=== PATIENT | male | born 1950 | race Caucasian/White ===

== ENCOUNTER 2017-09-02 19:40 | Inpatient (IN) ==
[2017-09-02] MEDS ORDERED: Piperacil/Tazo 4.5 GM Premix 4.5 GM/100 ML BAG IV.SIG STA (20:10)
[2017-09-02] MEDS ORDERED: Acetaminophen 325 MG Tablet PO ONE (20:10)
[2017-09-02] MEDS ORDERED: Sod Chloride 0.9% Inj 300 ML IV.SIG SCH (20:15)
[2017-09-02] MEDS ORDERED: Sod Chloride 0.9% Inj 1,000 ML IV.SIG SCH (20:15)
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
[2017-09-02] MEDS: Sod Chloride 0.9% Inj 1,000 ML IV.SIG SCH (20:54)
[2017-09-02 21:03] LABS: Baso % (Auto) 0.3 % (0.0-2.0); Eos # (Auto) 0.1 th/mm3 (0.0-0.4); Eos % (Auto) 1.7 % (0.0-4.0); Hematocrit 39.9 % (39.0-51.0); Hemoglobin 13.3 gm/dL (13.0-17.0); Lymph # (Auto) 1.2 th/mm3 (1.0-4.8); Mean Corpuscular HGB Conc 33.3 % (32.0-36.0); Mean Corpuscular Volume 92.9 fL (80.0-100.0); Mono # (Auto) 0.7 th/mm3 (0.0-0.9); Mono % (Auto) 8.8 % (0.0-8.0); Neut # (Auto) 5.5 th/mm3 (1.8-7.7); Neut % (Auto) 73.2 % (16.0-70.0); Platelet Count 159 th/mm3 (150-450); Red Cell Distribution Width 13.4 % (11.6-17.2); White Blood Count 7.5 th/mm3 (4.0-11.0)
--- NOTE | 2017-09-02 21:04 | XR ---
EXAM DATE: 09/02/2017 8:54 PM EDT AGE/SEX: 67 years / Male INDICATIONS: Chest pains, shortness of breath, back pains. CLINICAL DATA: This is the patient's initial encounter. Patient reports that signs and symptoms have been present for 1 day and indicates a pain score of 9/10. MEDICAL/SURGICAL HISTORY: Chronic obstructive pulmonary disease. Black lung disease None. COMPARISON: No prior exams available for comparison. FINDINGS: A single AP view of the chest demonstrates the lungs to be symmetrically aerated without evidence of mass, infiltrate or effusion. Mild basilar atelectasis. The cardiomediastinal contours are unremarka ble. Osseous structures are intact. CONCLUSION: Mild basilar atelectasis. Electronically signed by: Brooks Ferreira MD 09/02/2017 9:03 PM EDT
[2017-09-02 21:08] LABS: Activated Partial Thrombo Time 24.9 sec (24.3-30.1); Prothrombin Time 10.4 sec (9.8-11.6)
[2017-09-02 21:27] LABS: Albumin 3.6 g/dL (3.4-5.0); Anion Gap 11 meq/L (5-15); Aspartate Aminotransferase 28 U/L (15-37); Blood Urea Nitrogen 12 mg/dL (7-18); Calcium 8.7 mg/dL (8.5-10.1); Carbon Dioxide 23.4 meq/L (21.0-32.0); Chloride 104 meq/L (98-107); Glomerular Filtration Rate 50 mL/min (>89); Glucose,Random 116 mg/dL (74-106); Lipase 94 U/L (73-393); Magnesium 1.9 mg/dL (1.5-2.5); Sodium 138 meq/L (136-145)
[2017-09-02 21:28] LABS: Alanine Aminotransferase 28 U/L (12-78)
[2017-09-02 21:31] LABS: Alkaline Phosphatase 96 U/L (45-117); Total Protein 7.7 g/dL (6.4-8.2)
[2017-09-02 21:56] LABS: Creatine Kinase 67 U/L (39-308)
[2017-09-02 22:48] LABS: Bacteria,Urine Rare /hpf; Bilirubin,Urine Negative (Negative); Clarity,Urine Hazy (Clear); Color,Urine Yellow (Yellw/Straw); Glucose,Urine (UA) Negative (Negative); Leukocyte Esterase,Urine Small (Negative); Mucus,Urine Few /lpf (Occasional); Nitrite,Urine Negative (Negative); Specific Gravity,Urine 1.025 (1.002-1.035)
[2017-09-03] MEDS ORDERED: Bisacodyl 10 MG Supp RECTAL PRN (01:25)
[2017-09-03] MEDS ORDERED: Acetaminophen 325 MG Tablet PO PRN (01:25)
[2017-09-03] MEDS ORDERED: Temazepam 15 MG Capsule PO PRN (01:25)
[2017-09-03] MEDS ORDERED: Sod Chloride 0.9% Inj 1,000 ML IV.CONT SCH (01:30)
--- NOTE | 2017-09-03 01:35 | P.HPFP ---
History of Present Illness Primary Care Physician: UNKNOWN <Rex Gallardo 09/03/17 14:20> UNKNOWN <Adeola Connelly 09/03/17 01:35> Chief Complaint: Fever, chills, and weakness <Adeola Connelly 09/03/17 01:35 > History of Present Illness: 67 year old male PMH of asthma, herniated discs, HTN, pulmonary emboli, sleep apnea, and stroke presented with fever and weakness. Patient on vacation from [place] with and after being on the beach all day came back to [facility] feeling overheated and weak. Vomited multiple times nonbloody. Has felt ill with fevers and chills for a couple of days. Oral temperature today was 102. Has been having difficulty initiating and finishing as well as pain with urination for past two months. Was unable to urinate on Thursday. 2 months ago admitted to hospital for urinary tract infection and received antibiotics. Had no imaging done at that time but said 15 years ago imaging showed something abnormal for prostate that he was supposed to follow up on yearly and never did. Father had bladder cancer and brother had prostate cancer. He notes no discharge. Notes back pain that has been constant for years and followed by a spine physician. <Adeola Connelly 09/03/17 01:35> - Diagnosis (1) Sepsis (2) UTI (urinary tract infection) (3) Weakness (4) Back pain (5) Constipation (6) Elevated serum creatinine <Rex Gallardo 09/03/17 14:20> (1) Sepsis (2) UTI (urinary tract infection) (3) Weakness (4) Back pain (5) Constipation (6) Elevated serum creatinine <Adeola Connelly 09/03/17 02:33> - Inpatient Certification If this patient has been admitted as an Inpatient: I certify that the inpatient services were ordered in accordance with Medicare regulations governing the order. This includes certification that hospital inpatient services are reasonable and necessary and in the case of services not specified as inpatient-only under 42 CFR 419.22(n), that they are appropriately provided as inpatient services in accordance to with the 2-midnight benchmark under 43 CFR 412.3(e) <Rex Gallardo 09/03/17 14:20> I certify that the inpatient services were ordered in accordance with Medicare regulations governing the order. This includes certification that hospital inpatient services are reasonable and necessary and in the case of services not specified as inpatient-only under 42 CFR 419.22(n), that they are appropriately provided as inpatient services in accordance to with the 2-midnight benchmark under 43 CFR 412.3(e) <Adeola Connelly 09/03/17 01:35> Review of Systems Constitutional: Reports body ache(s), Reports chills, Reports fatigue, Reports fever(s), Reports night sweats, Reports weakness <Adeola Connelly 09/03/17 01:35> Ears, Nose, Mouth, and Throat: Denies nasal congestion, Denies sore throat < Adeola Connelly 09/03/17 01:35> Cardiovascular: Reports shortness of breath, Reports shortness of breath with activity, Denies chest pain <Adeola Connelly 09/03/17 01:35> Respiratory: Reports shortness of breath, Reports shortness of breath with activity <Adeola Connelly 09/03/17 01:35> Gastrointestinal: Reports constipation, Reports vomiting, Denies abdominal pain , Denies change in stools <Adeola Connelly 09/03/17 01:35> Genitourinary: Reports painful urination, Reports urinary frequency, Reports urinary hesitancy <Adeola Connelly 09/03/17 01:35> Musculoskeletal: Reports back pain, Reports muscle weakness, Reports stiffness <Adeola Connelly 09/03/17 01:35> Neurologic: Reports radiating pain, Reports weakness, Denies frequent falls, Denies loss of vision, Denies memory loss, Denies numbness <Adeola Connelly 09/03/17 01:35> PMF - History History Provided By: Patient, Family Member <Adeola Connelly 09/03/17 01:35> - Medical History Medical History: Medical History (Last Updated 09/03/17 @ 01:29 by Adeola Connelly) Asthma Back pain HTN (hypertension) Mass in chest Pulmonary emboli Sleep apnea Stroke <Rex Gallardo - 09/03/17 14:20> Medical History (Last Updated 09/03/17 @ 01:29 by Adeola Connelly) Asthma Back pain HTN (hypertension) Mass in chest Pulmonary emboli Sleep apnea Stroke <Adeola Connelly 09/03/17 01:35> - Family History Family History: Family History (Last Updated 09/03/17 @ 01:29 by Adeola Connelly) Brother Family history of cancer Father Family history of cancer <Rex Gallardo 09/03/17 14:20> Family History (Last Updated 09/03/17 @ 01:29 by Adeola Connelly) Brother Family history of cancer Father Family history of cancer <Adeola Connelly 09/03/17 01:35> - Tobacco History Second Hand Smoke Exposure: No <Adeola Connelly 09/03/17 01:35> Smoking Status: Never smoker <Adeola Connelly 09/03/17 01:35> - Alcohol History How Often Do You Have a Drink Containing Alcohol: Monthly or less <Adeola Connelly 09/03/17 01:35> - Travel History Recent Travel in the [facility] Within the Last 8 Weeks: No <Adeola Connelly 01:35> Recent Travel Out of the Country Within the Last 8 Weeks: No <Adeola Connelly 09/03/17 01:35> - Immunization History Tetanus Immunization: >5 Years <Adeola Connelly 09/03/17 01:35> Hx Influenza Vaccine This Season: No <Adeola Connelly 09/03/17 01:35> Medications and Allergies Allergies Allergy/AdvReac Type Severity Reaction Status Date / Time morphine Allergy Burning Verified 09/02/17 19:53 <Rex Gallardo 09/03/17 14:20> Home Medications Medication Instructions Recorded Confirmed Type apixaban [Eliquis] 5 mg PO BID 09/02/17 09/02/17 History gabapentin [Neurontin] 300 mg PO TID 09/02/17 09/02/17 History hydrocodone-acetaminophen 1 tab PO Q6H PRN 09/02/17 09/02/17 History mirtazapine 30 mg PO DAILY 09/02/17 09/02/17 History <Rex Gallardo 09/03/17 14:20> Active Medications: Active Medications Acetaminophen (Tylenol) 650 mg PO Q4H PRN PRN Reason: Temp > 100.4 Hydrocodone Bitart/Acetaminophen (Van 10/325) 1 tab PO Q6H PRN PRN Reason: SEVERE PAIN Last Admin: 09/03/17 12:34 Dose: 1 tab Al Hydroxide/Mg Hydroxide (Milk Of Magnesia Liq) 30 ml PO Q12H PRN PRN Reason: Mild Constipation Bisacodyl (Dulcolax Supp) 10 mg RECTAL DAILY PRN PRN Reason: SEVERE CONSITIPATION Heparin Sodium (Porcine) (Heparin Inj) 5,000 units SQ Q8H [facility] Last Admin: 09/03/17 09:48 Dose: 5,000 units Sodium Chloride (Ns Inj) 1,000 mls @ 0 mls/hr IV.SIG .Q0M MATI Last Admin: 09/03/17 06:17 Dose: 140 mls/hr Sodium Chloride (Ns Inj) 1,000 mls @ 0 mls/hr IV.SIG .Q0M [facility] Last Infusion: 09/03/17 00:10 Dose: Infused Sodium Chloride (Ns Inj) 300 mls @ 0 mls/hr IV.SIG .Q0M MATI Last Infusion: 09/03/17 00:10 Dose: Infused Sodium Chloride (Ns Inj) 1,000 mls @ 140 mls/hr IV.CONT .Q7H9M MATI Ceftriaxone Sodium 1,000 mg/ (Sodium Chloride) 100 mls @ 200 mls/hr IV.SIG Q24H [facility] Last Admin: 09/03/17 06:18 Dose: 200 mls/hr Lactulose (Lactulose Liq) 30 ml PO DAILY PRN PRN Reason: SEVERE CONSITIPATION Ondansetron HCl (Zofran Odt) 4 mg PO Q6H PRN PRN Reason: NAUSEA OR VOMITING Senna/Docusate Sodium (Elba-Colace) 1 tab PO BID [facility] Last Admin: 09/03/17 09:51 Dose: Not Given Sennosides (Senokot) 17.2 mg PO Q12H PRN PRN Reason: Moderate Constipation Temazepam (Restoril) 15 mg PO HS PRN PRN Reason: INSOMNIA <Oslos,Rex R - 09/03/17 14:20> Active Medications Sodium Chloride (Ns Inj) 1,000 mls @ 0 mls/hr IV.SIG .Q0M [facility] Last Infusion: 09/03/17 00:10 Dose: Infused Sodium Chloride (Ns Inj) 1,000 mls @ 0 mls/hr IV.SIG .Q0M MATI Last Infusion: 09/03/17 00:10 Dose: Infused Sodium Chloride (Ns Inj) 300 mls @ 0 mls/hr IV.SIG .Q0M MATI Last Infusion: 09/03/17 00:10 Dose: Infused <GodwinAdeola C - 09/03/17 01:35> Exam Vital signs: Vital Signs 09/02/17 19:48 09/02/17 20:10 09/02/17 22:45 Temperature 102.8 F H Pulse Rate 122 H 100 H Respiratory Rate 24 16 Blood Pressure 127/71 114/59 L Pulse Oximetry 92 L 96 100 09/03/17 01:25 09/03/17 02:00 09/03/17 03:38 Temperature Pulse Rate 98 H 76 Respiratory Rate 16 Blood Pressure 117/60 Pulse Oximetry 98 98 98 09/03/17 04:44 09/03/17 06:23 09/03/17 06:27 Temperature 97.7 F 97.8 F Pulse Rate 78 73 Respiratory Rate 20 20 16 Blood Pressure 120/80 115/68 Pulse Oximetry 96 09/03/17 08:00 09/03/17 12:00 Temperature 98.2 F 97.9 F Pulse Rate 78 80 Respiratory Rate 18 18 Blood Pressure 102/61 124/73 Pulse Oximetry 94 L 96 Intake & Output 09/02/17 09/03/17 09/03/17 18:59 06:59 18:59 Intake Total 2300 / 2300 Output Total 250 / 250 Balance 2049 Weight 110.3 kg Intake: IV 2300 / 2300 NS Inj 300 ML @ Wide Open IV. 2300 / 2300 SIG .Q0M MATI Rx#:[id number] Oral 0 / 0 Output: Urine 250 / 250 Other: # Bowel Movements 0 Weight On Admission 106.5 kg <Rex Gallardo R - 09/03/17 14:20> Vital Signs 09/02/17 19:48 09/02/17 20:10 09/02/17 22:45 Temperature 102.8 F H Pulse Rate 122 H 100 H Respiratory Rate 24 16 Blood Pressure 127/71 114/59 L Pulse Oximetry 92 L 96 100 Intake & Output 09/02/17 09/02/17 09/03/17 06:59 18:59 06:59 Intake Total 2300 / 2300 Balance 2300 / 2300 Weight 106.594 kg Intake: IV 2300 / 2300 NS Inj 300 ML @ Wide Open IV. 2300 / 2300 SIG .Q0M MATI Rx#:[id number] <GodwinAdeola 09/03/17 01:35> - Constitutional no acute distress <Adeola Connelly 09/03/17 01:35> - Routine HEENT Exam Head: Present: normocephalic, atraumatic <Adeola Connelly 09/03/17 01:35> Eye: Present: EOMI, PERRL <Adeola Connelly 09/03/17 01:35> ENT: Present: mucous membranes moist <Adeola Connelly 09/03/17 01:35> - Routine Neck Exam Present: full ROM <Adeola Connelly 09/03/17 01:35> - Routine Respiratory Exam Absent: wheezes, crackles <Adeola Connelly 09/03/17 01:35> - Detailed Respiratory Exam bilateral Present: clear to auscultation. Absent: rhonchi, wheezes <Adeola Connelly 09/03/17 01:35> - Routine Cardiovascular Exam Present: RRR. Absent: murmur <Adeola Connelly 09/03/17 01:35> - Routine Abdominal Exam Present: soft, normoactive bowel sounds. Absent: tenderness, distended, guarding, rigid <Adeola Connelly 09/03/17 01:35> - Routine Extremities Exam Absent: edema <Adeola Connelly 09/03/17 01:35> - Routine Skin Exam Comments: sunburn on stomach <Adeola Cnonelly 09/03/17 01:35> - Routine Neurological Exam Present: alert, oriented X3, CN II-XII intact. Absent: sensory deficit < Adeola Connelly 09/03/17 01:35> strength 5/5 bilaterally for plantar flexion, dorsiflexion, and hip flexion <Adeola Connelly 09/03/17 01:35> Results - Labs Result diagrams: 09/02/17 20:20 09/03/17 09:42 <Rex Gallardo 09/03/17 14:20> Abnormal lab results 09/02/17 09/02/17 09/02/17 Range/Units 20:20 20:20 22:00 RBC 4.30 L (4.50-5.90) mil/mm3 Neut % (Auto) 73.2 H (16.0-70.0) % Marin % (Auto) 8.8 H (0.0-8.0) % ESR (0-20) mm/hr Chloride (98-107) meq/L Creatinine 1.43 H (0.60-1.30) mg/dL Estimated GFR 50 L (>89) mL/min Random Glucose 116 H (74-106) mg/dL Calcium (8.5-10.1) mg/dL Troponin I Less than 0.02 L (0.02-0.05) ng/mL Urine Clarity Hazy H (Clear) Ur Leukocyte Esterase Small H (Negative) Urine WBC 18 H (0-5) /hpf Urine Bacteria Rare H (None) /hpf Urine Mucus Few H (Occasional) /lpf 09/03/17 09/03/17 Range/Units 09:42 09:42 RBC (4.50-5.90) mil/mm3 Neut % (Auto) (16.0-70.0) % Marin % (Auto) (0.0-8.0) % ESR 32 H (0-20) mm/hr Chloride 110 H (98-107) meq/L Creatinine (0.60-1.30) mg/dL Estimated GFR 69 L (>89) mL/min Random Glucose (74-106) mg/dL Calcium 8.0 L (8.5-10.1) mg/dL Troponin I (0.02-0.05) ng/mL Urine Clarity (Clear) Ur Leukocyte Esterase (Negative) Urine WBC (0-5) /hpf Urine Bacteria (None) /hpf Urine Mucus (Occasional) /lpf Short CBC 09/02/17 Range/Units 20:20 WBC 7.5 (4.0-11.0) th/mm3 Hgb 13.3 (13.0-17.0) gm/dL Hct 39.9 (39.0-51.0) % Plt Count 159 (150-450) th/mm3 BMP 09/02/17 09/03/17 20:20 09:42 Sodium 138 143 Potassium 4.0 3.7 Chloride 104 110 H Carbon Dioxide 23.4 22.2 BUN 12 9 Creatinine 1.43 H 1.08 Calcium 8.7 8.0 L Cardiac Enzymes 09/02/17 Range/Units 20:20 Total Creatine Kinase 67 (39-308) U/L Troponin I Less than 0.02 L (0.02-0.05) ng/mL Liver Function 09/02/17 Range/Units 20:20 Total Bilirubin 0.4 (0.2-1.0) mg/dL AST 28 (15-37) U/L ALT 28 (12-78) U/L Alkaline Phosphatase 96 (45-117) U/L Albumin 3.6 (3.4-5.0) g/dL Urine 09/02/17 Range/Units 22:00 Urine Color Yellow (Yellw/Straw) Urine Clarity Hazy H (Clear) Urine pH 5.0 (5.0-8.5) Ur Specific Florence 1.025 (1.002-1.035) Urine Protein Negative (Neg-Trace) mg/dL Urine Glucose (UA) Negative (Negative) mg/dL <Rex Gallardo R - 09/03/17 14:20> Abnormal lab results 09/02/17 09/02/17 09/02/17 Range/Units 20:20 20:20 22:00 RBC 4.30 L (4.50-5.90) mil/mm3 Neut % (Auto) 73.2 H (16.0-70.0) % Marin % (Auto) 8.8 H (0.0-8.0) % Creatinine 1.43 H (0.60-1.30) mg/dL Estimated GFR 50 L (>89) mL/min Random Glucose 116 H (74-106) mg/dL Troponin I Less than 0.02 L (0.02-0.05) ng/mL Urine Clarity Hazy H (Clear) Ur Leukocyte Esterase Small H (Negative) Urine WBC 18 H (0-5) /hpf Urine Bacteria Rare H (None) /hpf Urine Mucus Few H (Occasional) /lpf Short CBC 09/02/17 Range/Units 20:20 WBC 7.5 (4.0-11.0) th/mm3 Hgb 13.3 (13.0-17.0) gm/dL Hct 39.9 (39.0-51.0) % Plt Count 159 (150-450) th/mm3 BMP 09/02/17 20:20 Sodium 138 Potassium 4.0 Chloride 104 Carbon Dioxide 23.4 BUN 12 Creatinine 1.43 H Calcium 8.7 Cardiac Enzymes 09/02/17 Range/Units 20:20 Total Creatine Kinase 67 (39-308) U/L Troponin I Less than 0.02 L (0.02-0.05) ng/mL Liver Function 09/02/17 Range/Units 20:20 Total Bilirubin 0.4 (0.2-1.0) mg/dL AST 28 (15-37) U/L ALT 28 (12-78) U/L Alkaline Phosphatase 96 (45-117) U/L Albumin 3.6 (3.4-5.0) g/dL Urine 09/02/17 Range/Units 22:00 Urine Color Yellow (Yellw/Straw) Urine Clarity Hazy H (Clear) Urine pH 5.0 (5.0-8.5) Ur Specific [place] 1.025 (1.002-1.035) Urine Protein Negative (Neg-Trace) mg/dL Urine Glucose (UA) Negative (Negative) mg/dL <Adeola Connelly - 09/03/17 01:35> - Imaging Impressions Chest X-Ray 09/02/17 20:10 CONCLUSION: Mild basilar atelectasis. <Rex Gallardo R - 09/03/17 14:20> Impressions Chest X-Ray 09/02/17 20:10 CONCLUSION: Mild basilar atelectasis. <Adeola Connelly - 09/03/17 01:35> Caprini VTE Risk Assessment Caprini VTE Risk Assessment: Moderate/High Risk (score >= 2) <Adeola Connelly 09/03/17 01:35> Caprini Risk Assessment Model: Point Value = 1 Point Value = 2 Point Value = 3 Point Value = 5 Age 41-60 Minor surgery BMI > 25 kg/m2 Swollen legs Varicose veins or History of unexplained or recurrent spontaneous Oral contraceptives or hormone replacement Sepsis (< 1 month) Serious lung disease, including pneumonia (< 1 month) Abnormal pulmonary function Acute myocardial infarction Congestive heart failure (< 1 month) History of inflammatory bowel disease Medical patient at bed rest Age 61-74 Arthroscopic surgery Major open surgery (> 45 min) Laparoscopic surgery (> 45 min) Malignancy Confined to bed (> 72 hours) Immobilizing plaster cast Central venous access Age >= 75 History of VTE Family history of VTE Factor V Leiden Prothrombin [id number] Lupus anticoagulant Anticardiolipin antibodies Elevated serum homocysteine Heparin-induced thrombocytopenia Other congenital or acquired thrombophilia Stroke (< 1 month) Elective arthroplasty Hip, pelvis, or leg fracture Acute spinal cord injury (< 1 month) <Rex Gallardo R - 09/03/17 14:20> Point Value = 1 Point Value = 2 Point Value = 3 Point Value = 5 Age 41-60 Minor surgery BMI > 25 kg/m2 Swollen legs Varicose veins or History of unexplained or recurrent spontaneous Oral contraceptives or hormone replacement Sepsis (< 1 month) Serious lung disease, including pneumonia (< 1 month) Abnormal pulmonary function Acute myocardial infarction Congestive heart failure (< 1 month) History of inflammatory bowel disease Medical patient at bed rest Age 61-74 Arthroscopic surgery Major open surgery (> 45 min) Laparoscopic surgery (> 45 min) Malignancy Confined to bed (> 72 hours) Immobilizing plaster cast Central venous access Age >= 75 History of VTE Family history of VTE Factor V Leiden Prothrombin [id number] Lupus anticoagulant Anticardiolipin antibodies Elevated serum homocysteine Heparin-induced thrombocytopenia Other congenital or acquired thrombophilia Stroke (< 1 month) Elective arthroplasty Hip, pelvis, or leg fracture Acute spinal cord injury (< 1 month) <Adeola Connelly - 09/03/17 01:35> Prophylaxis Regimen: Total Risk Factor Score Risk Level Prophylaxis Regimen 0-1 Low Early ambulation 2 Moderate Order ONE of the following: *Sequential Compression Device (SCD) *Heparin 5000 units SQ BID 3-4 Higher Order ONE of the following medications: *Heparin 5000 units SQ TID *Enoxaparin/Lovenox 40 mg SQ daily (WT < 150 kg, CrCl > 30 mL/min) *Enoxaparin/Lovenox 30 mg SQ daily (WT < 150 kg, CrCl > 10-29 mL/min) *Enoxaparin/Lovenox 30 mg SQ BID (WT < 150 kg, CrCl > 30 mL/min) AND/OR *Sequential Compression Device (SCD) 5 or more Highest Order ONE of the following medications: *Heparin 5000 units SQ TID (Preferred with Epidurals) *Enoxaparin/Lovenox 40 mg SQ daily (WT < 150 kg, CrCl > 30 mL/min) *Enoxaparin/Lovenox 30 mg SQ daily (WT < 150 kg, CrCl > 10-29 mL/min) *Enoxaparin/Lovenox 30 mg SQ BID (WT < 150 kg, CrCl > 30 mL/min) AND *Sequential Compression Device (SCD) <Rex Gallardo R - 09/03/17 14:20> Total Risk Factor Score Risk Level Prophylaxis Regimen 0-1 Low Early ambulation 2 Moderate Order ONE of the following: *Sequential Compression Device (SCD) *Heparin 5000 units SQ BID 3-4 Higher Order ONE of the following medications: *Heparin 5000 units SQ TID *Enoxaparin/Lovenox 40 mg SQ daily (WT < 150 kg, CrCl > 30 mL/min) *Enoxaparin/Lovenox 30 mg SQ daily (WT < 150 kg, CrCl > 10-29 mL/min) *Enoxaparin/Lovenox 30 mg SQ BID (WT < 150 kg, CrCl > 30 mL/min) AND/OR *Sequential Compression Device (SCD) 5 or more Highest Order ONE of the following medications: *Heparin 5000 units SQ TID (Preferred with Epidurals) *Enoxaparin/Lovenox 40 mg SQ daily (WT < 150 kg, CrCl > 30 mL/min) *Enoxaparin/Lovenox 30 mg SQ daily (WT < 150 kg, CrCl > 10-29 mL/min) *Enoxaparin/Lovenox 30 mg SQ BID (WT < 150 kg, CrCl > 30 mL/min) AND *Sequential Compression Device (SCD) <Adeola Connelly C 09/03/17 01:35> Assessment and Plan - Assessment (1) Sepsis Code(s): A41.9 - Sepsis, unspecified organism Status: Acute (2) UTI (urinary tract infection) Code(s): N39.0 - Urinary tract infection, site not specified Status: Acute (3) Weakness Code(s): R53.1 - Weakness Status: Acute (4) Back pain Code(s): M54.9 - Dorsalgia, unspecified Status: Acute (5) Constipation Code(s): K59.00 - Constipation, unspecified Status: Acute (6) Elevated serum creatinine Code(s): R79.89 - Other specified abnormal findings of blood chemistry Status : Acute <Rex Gallardo R - 09/03/17 14:20> (1) Sepsis Code(s): A41.9 - Sepsis, unspecified organism Status: Acute Plan: Patient presented with tachycardia HR 122 Temperature 102 and RR 24. Sepsis protocol. Patient denied chest pain. Troponin was negative. UA positive for leuk esterase and WBC. Cr elevated to 1.43. Lactic acid 1.9 BCX and UCX pending. 2.3 L of NS given in ED. Zosyn was given. INR 1 (patient said he was on eliquis with questioning admitted to not taking this week for possible back injections). Chest x-ray showed no infiltrates or effusions. Mild basilar atelectasis. Given urinary symptoms and UA, UTI most likely cause of infection. * Additional 1 NS bolus given and mantience 140 mL/hr * Rocephin 1 g ordered for am * UCX pending * BCX pending * Follow up lactic acid ordered * ESR ordered for am (2) UTI (urinary tract infection) Code(s): N39.0 - Urinary tract infection, site not specified Status: Acute Plan: UA positive for leuk esterase and WBC. Treated for UTI 2 months ago. Told in past prostate imaging abnormal and needed follow up. [facility] of bladder and prostate cancer. * UCX pending * Consider CT of abdomen pelvis for recurrent UTI and previous abnormal imaging * Consider urology consult for recurrent UTI * Given Zosyn in ED and rocephin scheduled for am (3) Weakness Code(s): R53.1 - Weakness Status: Acute Plan: Patient previously diagnosed with herniated discs. Reported weakness and difficult walking. ED physician reported weakness with dorsiflexion but repeat physical exam was normal. Weakness most likely due to disc or dehydration. * NS fluids for dehydration * cardiac diet for nutrition * consider MRI if strength deficit noted (4) Back pain Code(s): M54.9 - Dorsalgia, unspecified Status: Acute Plan: Known herniated disc. On home Van * Van 10mg q 6hrs PRN pain * tylenol PRN pain (5) Constipation Code(s): K59.00 - Constipation, unspecified Status: Acute Plan: Patient reports fpc issues with constipation and on home medications. * medication per protocol (6) Elevated serum creatinine Code(s): R79.89 - Other specified abnormal findings of blood chemistry Status : Acute Plan: on admission Cr 1.43. Possibly due to UTI or dehydration * See plan for UTI * NS fluids as above * Follow up BMP <Adeola Connelly - 09/03/17 02:33> - Assessment and Plan diet: cardiac code: full DVT prophylaxis: heparin <Adeola Connelly - 09/03/17 02:57> - Attending Attestation THIS CASE WAS DISCUSSED WITH THE RESIDENT PHYSICIANS. I HAVE REVIEWED THE RECORD AND AGREE WITH THE ABOVE NOTE AND PLAN OF CARE WAS DISCUSSED. I HAVE AUTHORIZED THE ORDER FOR ADMISSION TO AN IN-PATIENT STATUS. <Rex Gallardo R - 09/03/17 14:20>
[2017-09-03] MEDS ORDERED: Sod Chloride 0.9% Inj 1,000 ML IV.SIG ONE (01:38)
[2017-09-03] MEDS: Heparin - SQ 10,000 UNITS/ML Vial SQ SCH ×3 (03:35→18:23)
[2017-09-03] MEDS: Sod Chloride 0.9% Inj 1,000 ML IV.SIG SCH ×2 (06:17→18:25)
[2017-09-03] MEDS: Senna/Docusate Sodium 8.6/50 MG Tablet PO SCH ×2 (09:51→21:34)
[2017-09-03 11:15] LABS: Carbon Dioxide 22.2 meq/L (21.0-32.0); Potassium 3.7 meq/L (3.5-5.1)
--- NOTE | 2017-09-03 12:15 | P.PNFP ---
Subjective Interval history: Patient seen and examined this morning. No acute events overnight per nursing staff. Patient states that he feels much better after receiving antibiotics for his UTI. He states that his balance issues as well as his lower extremity weakness has greatly improved as well. His only current complaint is continued difficulty voiding stating that it is hard for him to start his stream as well as intermittently it feels that he does not fully empty his bladder. Urination does not cause him discomfort and he denies any hematuria at this time. Otherwise he endorses no fevers, chills, shortness breath, chest pain, NVD, abdominal pain, or calf tenderness. <Todd Israel H - 09/03/17 14:50> Results - Labs Result diagrams: 09/02/17 20:20 09/03/17 09:42 <Rex Gallardo R - 09/03/17 16:16> Abnormal lab results 09/02/17 09/02/17 09/02/17 Range/Units 20:20 20:20 22:00 RBC 4.30 L (4.50-5.90) mil/mm3 Neut % (Auto) 73.2 H (16.0-70.0) % [place] % (Auto) 8.8 H (0.0-8.0) % ESR (0-20) mm/hr Chloride (98-107) meq/L Creatinine 1.43 H (0.60-1.30) mg/dL Estimated GFR 50 L (>89) mL/min Random Glucose 116 H (74-106) mg/dL Calcium (8.5-10.1) mg/dL Troponin I Less than 0.02 L (0.02-0.05) ng/mL Urine Clarity Hazy H (Clear) Ur Leukocyte Esterase Small H (Negative) Urine WBC 18 H (0-5) /hpf Urine Bacteria Rare H (None) /hpf Urine Mucus Few H (Occasional) /lpf 09/03/17 09/03/17 Range/Units 09:42 09:42 RBC (4.50-5.90) mil/mm3 Neut % (Auto) (16.0-70.0) % [place]ink[place] % (Auto) (0.0-8.0) % ESR 32 H (0-20) mm/hr Chloride 110 H (98-107) meq/L Creatinine (0.60-1.30) mg/dL Estimated GFR 69 L (>89) mL/min Random Glucose (74-106) mg/dL Calcium 8.0 L (8.5-10.1) mg/dL Troponin I (0.02-0.05) ng/mL Urine Clarity (Clear) Ur Leukocyte Esterase (Negative) Urine WBC (0-5) /hpf Urine Bacteria (None) /hpf Urine Mucus (Occasional) /lpf Short CBC 09/02/17 Range/Units 20:20 WBC 7.5 (4.0-11.0) th/mm3 Hgb 13.3 (13.0-17.0) gm/dL Hct 39.9 (39.0-51.0) % Plt Count 159 (150-450) th/mm3 BMP 09/02/17 09/03/17 20:20 09:42 Sodium 138 143 Potassium 4.0 3.7 Chloride 104 110 H Carbon Dioxide 23.4 22.2 BUN 12 9 Creatinine 1.43 H 1.08 Calcium 8.7 8.0 L Cardiac Enzymes 09/02/17 Range/Units 20:20 Total Creatine Kinase 67 (39-308) U/L Troponin I Less than 0.02 L (0.02-0.05) ng/mL Liver Function 09/02/17 Range/Units 20:20 Total Bilirubin 0.4 (0.2-1.0) mg/dL AST 28 (15-37) U/L ALT 28 (12-78) U/L Alkaline Phosphatase 96 (45-117) U/L Albumin 3.6 (3.4-5.0) g/dL Urine 09/02/17 Range/Units 22:00 Urine Color Yellow (Yellw/Straw) Urine Clarity Hazy H (Clear) Urine pH 5.0 (5.0-8.5) Ur Specific [place] 1.025 (1.002-1.035) Urine Protein Negative (Neg-Trace) mg/dL Urine Glucose (UA) Negative (Negative) mg/dL <Rex Gallardo - 09/03/17 16:16> Abnormal lab results 09/02/17 09/02/17 09/02/17 Range/Units 20:20 20:20 22:00 RBC 4.30 L (4.50-5.90) mil/mm3 Neut % (Auto) 73.2 H (16.0-70.0) % [place]ink[place] % (Auto) 8.8 H (0.0-8.0) % ESR (0-20) mm/hr Chloride (98-107) meq/L Creatinine 1.43 H (0.60-1.30) mg/dL Estimated GFR 50 L (>89) mL/min Random Glucose 116 H (74-106) mg/dL Calcium (8.5-10.1) mg/dL Troponin I Less than 0.02 L (0.02-0.05) ng/mL Urine Clarity Hazy H (Clear) Ur Leukocyte Esterase Small H (Negative) Urine WBC 18 H (0-5) /hpf Urine Bacteria Rare H (None) /hpf Urine Mucus Few H (Occasional) /lpf 09/03/17 09/03/17 Range/Units 09:42 09:42 RBC (4.50-5.90) mil/mm3 Neut % (Auto) (16.0-70.0) % [place]ink[place] % (Auto) (0.0-8.0) % ESR 32 H (0-20) mm/hr Chloride 110 H (98-107) meq/L Creatinine (0.60-1.30) mg/dL Estimated GFR 69 L (>89) mL/min Random Glucose (74-106) mg/dL Calcium 8.0 L (8.5-10.1) mg/dL Troponin I (0.02-0.05) ng/mL Urine Clarity (Clear) Ur Leukocyte Esterase (Negative) Urine WBC (0-5) /hpf Urine Bacteria (None) /hpf Urine Mucus (Occasional) /lpf Short CBC 09/02/17 Range/Units 20:20 WBC 7.5 (4.0-11.0) th/mm3 Hgb 13.3 (13.0-17.0) gm/dL Hct 39.9 (39.0-51.0) % Plt Count 159 (150-450) th/mm3 BMP 09/02/17 09/03/17 20:20 09:42 Sodium 138 143 Potassium 4.0 3.7 Chloride 104 110 H Carbon Dioxide 23.4 22.2 BUN 12 9 Creatinine 1.43 H 1.08 Calcium 8.7 8.0 L Cardiac Enzymes 09/02/17 Range/Units 20:20 Total Creatine Kinase 67 (39-308) U/L Troponin I Less than 0.02 L (0.02-0.05) ng/mL Liver Function 09/02/17 Range/Units 20:20 Total Bilirubin 0.4 (0.2-1.0) mg/dL AST 28 (15-37) U/L ALT 28 (12-78) U/L Alkaline Phosphatase 96 (45-117) U/L Albumin 3.6 (3.4-5.0) g/dL Urine 09/02/17 Range/Units 22:00 Urine Color Yellow (Yellw/Straw) Urine Clarity Hazy H (Clear) Urine pH 5.0 (5.0-8.5) Ur Specific [place] 1.025 (1.002-1.035) Urine Protein Negative (Neg-Trace) mg/dL Urine Glucose (UA) Negative (Negative) mg/dL <Todd Israel H - 09/03/17 12:15> - Imaging Impressions Chest X-Ray 09/02/17 20:10 CONCLUSION: Mild basilar atelectasis. <Rex Gallardo R - 09/03/17 16:16> Impressions Chest X-Ray 09/02/17 20:10 CONCLUSION: Mild basilar atelectasis. <Todd Israel H - 09/03/17 12:15> Physical Exam Vital signs: Vital Signs 09/02/17 19:48 09/02/17 20:10 09/02/17 22:45 Temperature 102.8 F H Pulse Rate 122 H 100 H Respiratory Rate 24 16 Blood Pressure 127/71 114/59 L Pulse Oximetry 92 L 96 100 09/03/17 01:25 09/03/17 02:00 09/03/17 03:38 Temperature Pulse Rate 98 H 76 Respiratory Rate 16 Blood Pressure 117/60 Pulse Oximetry 98 98 98 09/03/17 04:44 09/03/17 06:23 09/03/17 06:27 Temperature 97.7 F 97.8 F Pulse Rate 78 73 Respiratory Rate 20 20 16 Blood Pressure 120/80 115/68 Pulse Oximetry 96 09/03/17 08:00 09/03/17 12:00 Temperature 98.2 F 97.9 F Pulse Rate 78 80 Respiratory Rate 18 18 Blood Pressure 102/61 124/73 Pulse Oximetry 94 L 96 Intake & Output 09/02/17 09/03/17 09/03/17 18:59 06:59 18:59 Intake Total 2300 / 2300 Output Total 250 / 250 Balance 2049 Weight 110.3 kg Intake: IV 2300 / 2300 NS Inj 300 ML @ Wide Open IV. 2300 / 2300 SIG .Q0M MATI Rx#:[id number] Oral 0 / 0 Output: Urine 250 / 250 Other: # Bowel Movements 0 Weight On Admission 106.5 kg <Rex Gallardo R - 09/03/17 16:16> Vital Signs 09/02/17 19:48 09/02/17 20:10 09/02/17 22:45 Temperature 102.8 F H Pulse Rate 122 H 100 H Respiratory Rate 24 16 Blood Pressure 127/71 114/59 L Pulse Oximetry 92 L 96 100 09/03/17 01:25 09/03/17 02:00 09/03/17 03:38 Temperature Pulse Rate 98 H 76 Respiratory Rate 16 Blood Pressure 117/60 Pulse Oximetry 98 98 98 09/03/17 04:44 09/03/17 06:23 09/03/17 06:27 Temperature 97.7 F 97.8 F Pulse Rate 78 73 Respiratory Rate 20 20 16 Blood Pressure 120/80 115/68 Pulse Oximetry 96 09/03/17 08:00 Temperature 98.2 F Pulse Rate 78 Respiratory Rate 18 Blood Pressure 102/61 Pulse Oximetry 94 L Intake & Output 09/02/17 09/03/17 09/03/17 18:59 06:59 18:59 Intake Total 2300 / 2300 Output Total 250 / 250 Balance 2049 Weight 110.3 kg Intake: IV 2300 / 2300 NS Inj 300 ML @ Wide Open IV. 2300 / 2300 SIG .Q0M MATI Rx#:[id number] Oral 0 / 0 Output: Urine 250 / 250 Other: # Bowel Movements 0 Weight On Admission 106.5 kg <Todd Israel H - 09/03/17 12:15> Narrative: GENERAL: Well-nourished, well-developed male lying in bed in no acute distress watching television upon entering the room. SKIN: Warm and dry. No rash. Skin appears hyperpigmented and areas without desquamation. HEENT: Atraumatic, normocephalic with extraocular motions intact. No rhinorrhea. No visible lymphadenopathy or jugulovenous distension appreciated. CARDIOVASCULAR: Regular rate and rhythm without obvious murmurs, gallops, or rubs. 2+ pulses in all four extremities. RESPIRATORY: Clear to auscultation bilaterally with no crackles, wheezes, or rhonchi. No increased work of breathing. GASTROINTESTINAL: Abdomen soft, non-tender, nondistended with positive bowel sounds. No masses appreciated. Bladder edge not palpable. No suprapubic tenderness. MUSCULOSKELETAL: No cyanosis or edema. No calf tenderness. Patient able to ambulate well without assistance. NEURO/PSYCH: Afocal. Awake, alert, and oriented x3. Normal speech and judgement. Lower extremity strength 5/5. No apparent foot drop. Patient able to balance on toes and heels. <Todd Israel H - 09/03/17 14:50> Assessment and Plan - Assessment (1) Sepsis Code(s): A41.9 - Sepsis, unspecified organism Status: Acute (2) UTI (urinary tract infection) Code(s): N39.0 - Urinary tract infection, site not specified Status: Acute (3) Difficulty voiding Code(s): R39.198 - Other difficulties with micturition Status: Acute (4) Weakness Code(s): R53.1 - Weakness Status: Resolved (5) Back pain Code(s): M54.9 - Dorsalgia, unspecified Status: Chronic (6) Constipation Code(s): K59.00 - Constipation, unspecified Status: Acute (7) Elevated serum creatinine Code(s): R79.89 - Other specified abnormal findings of blood chemistry Status : Resolved (8) Nutrition, metabolism, and development symptoms Code(s): R63.8 - Other symptoms and signs concerning food and fluid intake Status: Acute <Rex Gallardo R - 09/03/17 16:16> (1) Sepsis Code(s): A41.9 - Sepsis, unspecified organism Status: Acute Plan: Patient presented with tachycardia HR 122 Temperature 102 and RR 24. Sepsis protocol. Patient denied chest pain. Troponin was negative. UA positive for leuk esterase and WBC. Cr elevated to 1.43. Lactic acid 1.9 BCX and UCX pending. 2.3 L of NS given in ED. Zosyn was given. INR 1 (patient said he was on eliquis with questioning admitted to not taking this week for possible back injections). Chest x-ray showed no infiltrates or effusions. Mild basilar atelectasis. Given urinary symptoms and UA, UTI most likely cause of infection. * NS at mantience 140 mL/hr * Rocephin 1 g ordered for daily * BCX: NTD * ESR 32 (2) UTI (urinary tract infection) Code(s): N39.0 - Urinary tract infection, site not specified Status: Acute Plan: UA positive for leuk esterase and WBC. Treated for UTI 2 months ago. Told in past prostate imaging abnormal and needed follow up. [facility] of bladder and prostate cancer. * UA: Hazy, small leukocyte esterase, 18 WBC, rare bacteria, few mucus, otherwise negative * UCX: Pending * Given Zosyn in ED * Rocephin 1 g daily (3) Difficulty voiding Code(s): R39.198 - Other difficulties with micturition Status: Acute Plan: Patient reports difficulty urinating for "quite some time." Patient endorses no dysuria, but does state that he has issues starting his stream and does not feel he completely empties his bladder with each void. * PSA ordered * Post void residuals ordered * Plan to initiate Flomax with post void residual of greater than 150 mL * Urology consult canceled; patient to follow with urology if indicated at time of discharge is currently his possible retention does not require catheterization or other intervention (4) Weakness Code(s): R53.1 - Weakness Status: Resolved Plan: Patient previously diagnosed with herniated discs. Reported weakness and difficult walking. ED physician reported weakness with dorsiflexion but repeat physical exam was normal. Weakness most likely due to disc or dehydration. * Patient states symptoms have resolved on 09/03/17 * NS fluids for dehydration * cardiac diet for nutrition (5) Back pain Code(s): M54.9 - Dorsalgia, unspecified Status: Chronic Plan: Known herniated disc. On home [place] * [place] 10mg q 6hrs PRN pain * tylenol PRN pain (6) Constipation Code(s): K59.00 - Constipation, unspecified Status: Acute Plan: Patient reports half-way issues with constipation and on home medications. * medication per protocol (7) Elevated serum creatinine Code(s): R79.89 - Other specified abnormal findings of blood chemistry Status : Resolved Plan: on admission Cr 1.43. Possibly due to UTI or dehydration * See plan for UTI * NS fluids as above * Elevated creatinine resolved 09/03/17 (8) Nutrition, metabolism, and development symptoms Code(s): R63.8 - Other symptoms and signs concerning food and fluid intake Status: Acute Plan: diet: cardiac code: full DVT prophylaxis: heparin Electrolytes: Within normal limits, continue to monitor <Todd Israel H - 09/03/17 14:21> - Attending Attestation PATIENT SEEN AND CASE DISCUSSED WITH RESIDENT PHYSICIANS. I HAVE READ AND AGREE WITH ABOVE NOTE AND PLAN DISCUSSED WITH ME. <Rex Gallardo R - 09/03/17 16:16>
--- NOTE | 2017-09-03 17:59 | ECG ---
Date Performed: 09/02/2017 Time Performed: 20:45:52 PTAGE: 67 years EKG: SUPRAVENTRICULAR TACHYCARDIA POSSIBLE RIGHT VENTRICULAR CONDUCTION DELAY MODERATE ST DEPRES IAN ABNORMAL ECG NO PREVIOUS TRACING DOCTOR: Ekaterina Munson Interpretating Date/Time 09/03/2017 17:56:30
[2017-09-04] MEDS: Heparin - SQ 10,000 UNITS/ML Vial SQ SCH ×2 (01:28→10:01)
[2017-09-04 05:07] LABS: Free PSA/PSA Ratio 0.06 ratio
--- NOTE | 2017-09-04 09:34 | P.PNFP ---
Subjective Interval history: Patient seen and examined at bedside. No acute events overnight. Patient states he is doing well. Reports no issues with voiding. Denies N/V, fever or chills overnight. He would like to go home today. <Tito Lovell - 09/04/17 10:14> Results - Labs Result diagrams: 09/04/17 09:30 09/04/17 09:30 <Rex Gallardo - 09/05/17 09:45> Abnormal lab results 09/04/17 09/04/17 Range/Units 09:30 09:30 WBC 3.9 L (4.0-11.0) th/mm3 RBC 4.27 L (4.50-5.90) mil/mm3 [place] % (Auto) 13.4 H (0.0-8.0) % Eos % (Auto) 4.1 H (0.0-4.0) % Chloride 112 H (98-107) meq/L Estimated GFR 71 L (>89) mL/min Short CBC 09/04/17 Range/Units 09:30 WBC 3.9 L (4.0-11.0) th/mm3 Hgb 13.3 (13.0-17.0) gm/dL Hct 39.3 (39.0-51.0) % Plt Count 172 (150-450) th/mm3 [facility] 09/04/17 09:30 Sodium 144 Potassium 3.8 Chloride 112 H Carbon Dioxide 21.7 BUN 10 Creatinine 1.05 Calcium 8.5 <Rex Gallardo - 09/05/17 09:45> Abnormal lab results 09/03/17 09/03/17 09/03/17 Range/Units 09:42 09:42 09:42 ESR 32 H (0-20) mm/hr Chloride 110 H (98-107) meq/L Estimated GFR 69 L (>89) mL/min Calcium 8.0 L (8.5-10.1) mg/dL Total PSA 4.7 H (<=4.5) ng/mL [facility] 09/03/17 09:42 Sodium 143 Potassium 3.7 Chloride 110 H Carbon Dioxide 22.2 BUN 9 Creatinine 1.08 Calcium 8.0 L <Tito Lovell - 09/04/17 09:34> Physical Exam Vital signs: Vital Signs 09/03/17 12:00 09/03/17 16:00 09/03/17 20:00 Temperature 97.9 F 97.3 F L 98 F Pulse Rate 68 73 73 Respiratory Rate 18 18 16 Blood Pressure 124/73 134/85 122/69 Pulse Oximetry 96 97 96 09/04/17 00:00 09/04/17 04:00 Temperature 98.1 F 97.9 F Pulse Rate 73 80 Respiratory Rate 16 16 Blood Pressure 125/72 109/55 L Pulse Oximetry 95 93 L Intake & Output 09/03/17 09/04/17 09/04/17 18:59 06:59 18:59 Intake Total 1720 / 1720 240 / 240 Output Total 1250 / 1250 1150 / 1150 Balance 470 / 470 -910 / -910 Weight 112.6 kg Intake: IV 1000 / 1000 NS Inj 1,000 ML @ Wide Open IV. 1000 / 1000 SIG .Q0M MATI Rx#:[id number] Oral 720 / 720 240 / 240 Output: Urine 1250 / 1250 1150 / 1150 Other: # Bowel Movements 0 <Tito Lovell 09/04/17 09:34> - Constitutional no acute distress <Tito Lovell 09/04/17 10:14> - Routine HEENT Exam Head: Present: atraumatic <Tito Lovell 09/04/17 10:14> Eye: Present: EOMI, PERRL <Tito Lovell 09/04/17 10:14> ENT: Present: mucous membranes moist <Tito Lovell 09/04/17 10:14> - Routine Neck Exam Present: supple, full ROM. Absent: JVD <Tito Lovell 09/04/17 10:14> - Routine Respiratory Exam Present: CTA bilaterally. Absent: accessory muscle use <Tito Lovell 08/17 10:14> - Routine Cardiovascular Exam Present: RRR, S1, S2. Absent: murmur, gallop, rubs <Tito Lovell D 10:14> - Routine Abdominal Exam Present: soft, normoactive bowel sounds. Absent: tenderness, distended < Tito Lovell D 09/04/17 10:14> - Routine Extremities Exam Present: full ROM, pulses intact, normal capillary refill. Absent: cyanosis, clubbing, edema <Tito Lovell D - 09/04/17 10:14> - Routine Skin Exam Present: intact <Tito Lovell - 09/04/17 10:14> - Routine Neurological Exam Present: alert, oriented X3, CN II-XII intact. Absent: sensory deficit, motor deficit <Tito Lovell - 09/04/17 10:14> - Routine Psychiatric Exam Present: normal affect <Tito Lovell - 09/04/17 10:14> Assessment and Plan - Assessment (1) Sepsis Code(s): A41.9 - Sepsis, unspecified organism Status: Resolved (2) UTI (urinary tract infection) Code(s): N39.0 - Urinary tract infection, site not specified Status: Acute (3) Difficulty voiding Code(s): R39.198 - Other difficulties with micturition Status: Acute (4) Weakness Code(s): R53.1 - Weakness Status: Resolved (5) Back pain Code(s): M54.9 - Dorsalgia, unspecified Status: Chronic (6) Constipation Code(s): K59.00 - Constipation, unspecified Status: Chronic (7) Elevated serum creatinine Code(s): R79.89 - Other specified abnormal findings of blood chemistry Status : Resolved <Rex Gallardo R - 09/05/17 09:45> (1) Sepsis Code(s): A41.9 - Sepsis, unspecified organism Status: Resolved Plan: On admission patient presented with tachycardia HR 122 Temperature 102 and RR 24. Patient denied chest pain. Troponin was negative. UA positive for leuk esterase and WBC. Cr elevated to 1.43. Lactic acid 1.9 BCX and UCX pending. 2.3 L of NS given in ED. Zosyn was given. INR 1 (patient said he was on eliquis with questioning admitted to not taking this week for possible back injections) . Chest x-ray showed no infiltrates or effusions. Mild basilar atelectasis. Given urinary symptoms and UA, UTI most likely cause of infection. * NS at maintenance 140 mL/hr * Rocephin 1 g 09/03-7/6 * BCX and urine cx: NTD * ESR 32 * Sepsis resolved patient vitals are within normal limits. Exam patient doing well. * (2) UTI (urinary tract infection) Code(s): N39.0 - Urinary tract infection, site not specified Status: Acute Plan: UA positive for leuk esterase and WBC. Treated for UTI 2 months ago. Told in past prostate imaging abnormal and needed follow up. [facility] of bladder and prostate cancer. * UA: Hazy, small leukocyte esterase, 18 WBC, rare bacteria, few mucus, otherwise negative * UCX: Pending * Given Zosyn x1 and Rocephin 1 g x2 * Patient with normal urine output. Post void bladder scan <10ml. * Slight elevation in PSA to 4.7 * Patient prescribed Cipro 500 mg twice daily for 5 days to complete medication course upon discharge * Patient advised to follow-up with PCP once he returns home to [place]. (3) Difficulty voiding Code(s): R39.198 - Other difficulties with micturition Status: Acute Plan: Patient reports difficulty urinating for "quite some time." Patient endorses no dysuria, but does state that he has issues starting his stream and does not feel he completely empties his bladder with each void. * PSA 4.7 * Post void residuals < 10ml * Flomax not needed (4) Weakness Code(s): R53.1 - Weakness Status: Resolved Plan: Patient previously diagnosed with herniated discs. Reported weakness and difficult walking. ED physician reported weakness with dorsiflexion but repeat physical exam was normal. Weakness most likely due to disc or dehydration. * Patient states symptoms have resolved on 09/03/17 * NS fluids for dehydration * cardiac diet for nutrition (5) Back pain Code(s): M54.9 - Dorsalgia, unspecified Status: Chronic Plan: Known herniated disc. On home [place] * [place] 10mg q 6hrs PRN pain * tylenol PRN pain (6) Constipation Code(s): K59.00 - Constipation, unspecified Status: Acute Plan: Patient reports correction issues with constipation and on home medications. * medication per protocol (7) Elevated serum creatinine Code(s): R79.89 - Other specified abnormal findings of blood chemistry Status : Resolved Plan: on admission Cr 1.43. Possibly due to UTI or dehydration * See plan for UTI * NS fluids as above * creatinine of 1.08 on 09/03/17 (8) Nutrition, metabolism, and development symptoms Code(s): R63.8 - Other symptoms and signs concerning food and fluid intake Status: Acute Plan: diet: cardiac code: full DVT prophylaxis: heparin Electrolytes: Within normal limits, continue to monitor <Tito Lovell - 09/04/17 10:00> - Assessment and Plan diet: cardiac code: full DVT prophylaxis: heparin <Tito Lovell - 09/04/17 09:34> - Attending Attestation This patient was seen and examined. The assessment and plan was discussed with the resident physician and I am in agreement with continued medical care as documented in this encounter. <Rex Gallardo - 09/05/17 09:45>
[2017-09-04 10:09] LABS: Baso % (Auto) 0.3 % (0.0-2.0); Eos # (Auto) 0.2 th/mm3 (0.0-0.4); Eos % (Auto) 4.1 % (0.0-4.0); Hematocrit 39.3 % (39.0-51.0); Hemoglobin 13.3 gm/dL (13.0-17.0); Lymph # (Auto) 1.4 th/mm3 (1.0-4.8); Lymph % (Auto) 34.8 % (9.0-44.0); Mean Corpuscular HGB Conc 33.9 % (32.0-36.0); Mean Corpuscular Hemoglobin 31.2 pg (27.0-34.0); Mean Corpuscular Volume 92.1 fL (80.0-100.0); Mean Platelet Volume 7.5 fL (7.0-11.0); Mono # (Auto) 0.5 th/mm3 (0.0-0.9); Mono % (Auto) 13.4 % (0.0-8.0); Neut # (Auto) 1.8 th/mm3 (1.8-7.7); Neut % (Auto) 47.4 % (16.0-70.0); Platelet Count 172 th/mm3 (150-450); Red Blood Count 4.27 mil/mm3 (4.50-5.90); Red Cell Distribution Width 14.2 % (11.6-17.2); White Blood Count 3.9 th/mm3 (4.0-11.0)
--- NOTE | 2017-09-04 10:34 | P.DS ---
Date of admission: 09/03/17 00:45 Primary care physician: UNKNOWN Attending physician on discharge: Rex Gallardo Anticipated date of discharge: 09/04/17 Brief History from admission: 67 year old male PMH of asthma, herniated discs, HTN, pulmonary emboli, sleep apnea, and stroke presented with fever and weakness. Patient on vacation from [place] with and after being on the beach all day came back to hotel feeling overheated and weak. Vomited multiple times nonbloody. Has felt ill with fevers and chills for a couple of days. Oral temperature today was 102. Has been having difficulty initiating and finishing as well as pain with urination for past two months. Was unable to urinate on Thursday. 2 months ago admitted to hospital for urinary tract infection and received antibiotics. Had no imaging done at that time but said 15 years ago imaging showed something abnormal for prostate that he was supposed to follow up on yearly and never did. Father had bladder cancer and brother had prostate cancer. He notes no discharge. Notes back pain that has been constant for years and followed by a spine physician. DS: Diagnosis - Discharge Diagnosis (1) Sepsis Status: Resolved (2) UTI (urinary tract infection) Status: Acute (3) Difficulty voiding Status: Acute (4) Weakness Status: Resolved (5) Back pain Status: Chronic (6) Constipation Status: Chronic (7) Elevated serum creatinine Status: Resolved DS: Medications - Discharge Medications Prescriptions: ciprofloxacin HCl 500 mg PO BID 5 Days #10 tab DS: Summary Hospital Course: 67 year old male PMH of asthma, herniated discs, HTN, pulmonary emboli, sleep apnea, and stroke presented with fever and weakness. Patient was treated for UTI with Zosyn 1 and Rocephin 2 during hospital course and post void residual was determined to be less than 10 ml. Patient was hemodynamically stable upon discharge. Patient was given prescription for Cipro 500 twice daily to complete a 5 day course. He was advised to follow-up with PCP upon return to [facility]. - Time Spent with Patient Total time spent providing and/or coordinating discharge services: - Quality: VTE Deep Vein Thrombosis/Pulmonary Embolism Present on Admission: No Exam Vital signs: Vital Signs 09/03/17 12:00 09/03/17 16:00 09/03/17 20:00 Temperature 97.9 F 97.3 F L 98 F Pulse Rate 68 73 73 Respiratory Rate 18 18 16 Blood Pressure 124/73 134/85 122/69 Pulse Oximetry 96 97 96 09/04/17 00:00 09/04/17 04:00 09/04/17 08:00 Temperature 98.1 F 97.9 F 97.6 F Pulse Rate 73 80 79 Respiratory Rate 16 16 18 Blood Pressure 125/72 109/55 L 151/91 H Pulse Oximetry 95 93 L 96 Intake & Output 09/03/17 09/04/17 09/04/17 18:59 06:59 18:59 Intake Total 1720 / 1720 240 / 240 Output Total 1250 / 1250 1150 / 1150 Balance 470 / 470 -910 / -910 Weight 112.6 kg Intake: IV 1000 / 1000 NS Inj 1,000 ML @ Wide Open IV. 1000 / 1000 SIG .Q0M MATI Rx#:[id number] Oral 720 / 720 240 / 240 Output: Urine 1250 / 1250 1150 / 1150 Other: # Bowel Movements 0 - Constitutional no acute distress - Routine HEENT Exam Head: Present: normocephalic Eye: Present: EOMI, PERRL ENT: Present: mucous membranes moist - Routine Neck Exam Present: supple, full ROM. Absent: JVD - Routine Chest/Breast/Axilla Exam Chest wall: Absent: tenderness - Routine Respiratory Exam Present: CTA bilaterally. Absent: accessory muscle use - Routine Cardiovascular Exam Present: RRR, S1, S2. Absent: murmur, gallop, rubs - Routine Abdominal Exam Present: soft - Routine Extremities Exam Present: full ROM, pulses intact. Absent: cyanosis, clubbing, edema - Routine Skin Exam Present: intact - Routine Neurological Exam Present: alert, oriented X3, CN II-XII intact. Absent: sensory deficit Results Procedures completed during hospitalization: Post void bladder scan Labs on day of discharge: Labs from last 24 hours 09/04/17 09/04/17 09/03/17 09:30 09:30 09:42 WBC 3.9 L RBC 4.27 L Hgb 13.3 Hct 39.3 MCV 92.1 MCH 31.2 MCHC 33.9 RDW 14.2 Plt Count 172 MPV 7.5 Neut % (Auto) 47.4 Lymph % (Auto) 34.8 Blaine % (Auto) 13.4 H Eos % (Auto) 4.1 H Baso % (Auto) 0.3 Neut # (Auto) 1.8 Lymph # (Auto) 1.4 Blaine # (Auto) 0.5 Eos # (Auto) 0.2 Baso # (Auto) 0.0 WBC Differential . Differential Comment Auto diff final ESR Sodium Pending 143 Potassium Pending 3.7 Chloride Pending 110 H Carbon Dioxide Pending 22.2 Anion Gap Pending 11 BUN Pending 9 Creatinine Pending 1.08 Estimated GFR 69 L Random Glucose Pending 93 Calcium Pending 8.0 L Free PSA Total PSA PSA Free/Total Ratio 09/03/17 09/03/17 09:42 09:42 WBC RBC Hgb Hct MCV MCH MCHC RDW Plt Count MPV Neut % (Auto) Lymph % (Auto) Blaine % (Auto) Eos % (Auto) Baso % (Auto) Neut # (Auto) Lymph # (Auto) Blaine # (Auto) Eos # (Auto) Baso # (Auto) WBC Differential Differential Comment ESR 32 H Sodium Potassium Chloride Carbon Dioxide Anion Gap BUN Creatinine Estimated GFR Random Glucose Calcium Free PSA 0.3 Total PSA 4.7 H PSA Free/Total Ratio 0.06 Preliminary micro results at discharge 09/02/17 20:15 Anaerobic Blood Culture - Preliminary Blood - Peripheral No growth in 1 day 09/02/17 20:25 Aerobic Blood Culture - Preliminary Blood - Peripheral No growth in 1 day Anaerobic Blood Culture - Preliminary No growth in 1 day - Impressions ITS Impressions Chest X-Ray 09/02/17 20:10 CONCLUSION: Mild basilar atelectasis. Discharge Plan - Discharge Disposition Patient Disposition: 01 Discharge Home - Discharge Condition Condition: Stable - Discharge Order Discharge Orders: Discharge Order (Routine); Ordered 09/04/17 Ordered By: Tito Lovell - Discharge Details Anticipated Discharge Date: 09/04/17 - Physicians Team Primary Care Provider: UNKNOWN, Attending Provider: Rex Gallardo Other Providers: Amando Carmona MD
[2017-09-04 10:35] LABS: Calcium 8.5 mg/dL (8.5-10.1); Carbon Dioxide 21.7 meq/L (21.0-32.0); Potassium 3.8 meq/L (3.5-5.1)
== END 2017-09-04 12:00 | disposition home or self-care (01) ==
LOC: NEPE 19:40 → NEDA 09-03 00:45 → N04 09-03 04:04
PROVIDERS: ADMIT Family Medicine; ATTEND Family Medicine